=== PATIENT | male | born 1945 | race Two or more races ===

== ENCOUNTER 2025-06-14 21:59 | Inpatient (IN) | payer MEDICARE, OTHER ==
[~2025-06-14] VITALS: Ht 165.1 cm; Wt 67.6 kg
[2025-06-14 23:12] LABS: PLATELET COUNT (AUTO) 238 K/uL (150-450); RED BLOOD CELL COUNT(AUTO) 3.74 MIL/uL (4.5-6.0); RED CELL DISTRIBUTION WIDTH 13.8 % (11.5-15.0); WHITE BLOOD COUNT (AUTO) 7.2 K/uL (4.3-11.0)
[2025-06-14 23:19] LABS: CALCIUM, SERUM 8.6 mg/dL (8.5-10.1); CREATININE 1.6 mg/dL (0.6-1.3); SODIUM SERUM 139 mmol/L (136-145); UREA NITROGEN, BLOOD 48 mg/dL (7-18)
[2025-06-14 23:36] LABS: ALCOHOL, BLOOD < 3 mg/dL (0-10); ASPARTATE AMINOTRANSFERASE 29 U/L (15-37); TOTAL PROTEIN, SERUM 7.5 g/dL (6.4-8.2)
[2025-06-15 00:14] LABS: APPEARANCE,URINE SLIGHTLY CLOUDY (CLEAR); BLOOD, URINE NEGATIVE Ery/uL (NEGATIVE); LEUKOCYTE ESTERASE ,URINE 2+ (NEGATIVE); NITRITE, URINE POSITIVE (NEGATIVE); UGLUCOSE NEGATIVE (NEGATIVE)
[2025-06-15 00:21] LABS: ADD URINE CULTURE YES; SQUAMOUS EPITHELIAL CELL,UR Few /HPF (None Seen)
[2025-06-15 00:30] LABS: AMPHETAMINE, URINE NEGATIVE (NEGATIVE); BARBITURATE, URINE NEGATIVE (NEGATIVE); BENZODIAZEPINE, URINE NEGATIVE (NEGATIVE); CANNABINOID, URINE NEGATIVE (NEGATIVE); COCCAINE, URINE NEGATIVE (NEGATIVE)
[2025-06-15 00:31] LABS: OPIATE, URINE POSITIVE (NEGATIVE)
[2025-06-15] MEDS ORDERED: CIPROFLOXACIN HCL 500 MG TABLET ONE (01:20)
[2025-06-15] MEDS ORDERED: Z GUARD REMEDY 4 OZ OINT TP PRN (01:30)
[2025-06-15] MEDS ORDERED: ONDANSETRON HCL/PF 4 MG/2 ML VIAL IVP PRN (01:30)
[2025-06-15] MEDS ORDERED: MAG HYDROX/AL HYDROX/SIMETH 30 ML UDC PO PRN (01:30)
[2025-06-15] MEDS ORDERED: MAGNESIUM HYDROXIDE 30 ML UDC PO PRN (01:30)
[2025-06-15] MEDS: CIPROFLOXACIN HCL 500 MG TABLET PO ONE (01:34)
[2025-06-15] MEDS: IV NS 0.9% 1,000 ML BAG IV ONE (01:34)
[2025-06-15] MEDS ORDERED: MORPHINE SULFATE INJ 2 MG/ML DISP.SYRIN IV PRN (02:00)
[2025-06-15 02:23] VITALS: BP 151/67; TEMP 97.9; O2SAT 96
[2025-06-15] MEDS: GABAPENTIN 300 MG CAPSULE PO SCH ×2 (02:51→21:02)
[2025-06-15] MEDS: IV NS 0.9% 1,000 ML IV PRN (06:55)
[2025-06-15] MEDS: QUETIAPINE FUMARATE 25 MG TABLET PO SCH ×2 (06:55→11:39)
[2025-06-15] MEDS: ACETAMINOPHEN 325 MG TABLET PO PRN (07:08)
[2025-06-15] MEDS: DOCUSATE SODIUM 100 MG CAPSULE PO SCH (08:07)
[2025-06-15] MEDS: FINASTERIDE (5 MG) 5 MG TABLET PO SCH ×2 (08:07→09:00)
[2025-06-15] MEDS: DIVALPROEX SODIUM 125 MG TABLET.DR PO SCH ×2 (08:07→09:00)
[2025-06-15] MEDS: CHOLECALCIFEROL 1,000 UNIT TABLET (VIT D3) PO SCH (08:07)
[2025-06-15] MEDS: PANTOPRAZOLE 40 MG TABLET.DR PO SCH (08:07)
[2025-06-15] MEDS: MULTIVITAMINS,THERAGRAN 1 UDTAB TABLET PO SCH (08:08)
[2025-06-15] MEDS: FERROUS SULFATE (325 MG) 325 MG/TAB TABLET PO SCH ×2 (08:08→09:00)
[2025-06-15] MEDS: ASCORBIC ACID 500 MG TABLET PO SCH (08:08)
[2025-06-15] MEDS: AMLODIPINE BESYLATE 10 MG TABLET PO SCH ×2 (08:13→09:00)
[2025-06-15] MEDS: ENOXAPARIN SODIUM 40 MG/0.4 ML DISP.SYRIN SQ SCH (08:14)
[2025-06-15] MEDS ORDERED: ACET-868 PO (08:41)
[2025-06-15] MEDS ORDERED: BENA20TA9 PO (08:41)
[2025-06-15] MEDS ORDERED: DIVA125T32 PO (08:41)
[2025-06-15] MEDS ORDERED: FINA5TAB4 PO (08:41)
[2025-06-15] MEDS ORDERED: FERR-68 PO (08:41)
[2025-06-15] MEDS ORDERED: MELA5TAB PO (08:41)
[2025-06-15] MEDS ORDERED: AMLO10TA4 PO (08:41)
[2025-06-15] MEDS ORDERED: HYDR-3980 PO (08:41)
[2025-06-15] MEDS ORDERED: ASCO-352 PO (08:41)
[2025-06-15] MEDS ORDERED: GABA300C PO (08:41)
[2025-06-15] MEDS ORDERED: NALO4SPR NS (08:41)
[2025-06-15] MEDS ORDERED: CHOL100062 PO (08:41)
[2025-06-15] MEDS ORDERED: MULT-213 PO (08:41)
[2025-06-15] MEDS ORDERED: SORB30SO2 PO (08:41)
[2025-06-15] MEDS ORDERED: DOCU100T2 PO (08:41)
[2025-06-15] MEDS ORDERED: TAMS-12 PO (08:41)
[2025-06-15] MEDS ORDERED: SORBITOL SOLUTION 70% 30 ML SOLUTION PO PRN (09:00)
[2025-06-15] MEDS: POLYETHYLENE GLYCOL 3350 17 GM POWD.PACK PO SCH (09:00)
[2025-06-15] MEDS: DOCUSATE SODIUM LIQ 100 MG/10 ML UDC PO SCH (09:00)
[2025-06-15] MEDS: BENAZEPRIL HCL 20 MG TABLET PO SCH (09:00)
[2025-06-15] MEDS ORDERED: BENAZEPRIL HCL 20 MG TABLET PO SCH (09:00)
[2025-06-15 09:39] VITALS: BP 149/69; TEMP 98.2; O2SAT 97
[2025-06-15 11:30] VITALS: BP 132/86; TEMP 98.1; O2SAT 97
[2025-06-15] MEDS: CEFTRIAXONE 1 G in IV D5W 50 ML IV SCH (11:40)
[2025-06-15 16:00] VITALS: BP 146/72; TEMP 98.2; O2SAT 96
[2025-06-15 20:00] VITALS: BP 136/71; TEMP 98.1; O2SAT 94
[2025-06-15] MEDS ORDERED: CIPROFLOXACIN HCL 250 MG TABLET PO SCH (21:00)
[2025-06-15] MEDS: TRAZODONE 50 MG TABLET PO SCH (21:02)
[2025-06-15] MEDS: TAMSULOSIN 0.4 MG CAP.SR.24H PO SCH (21:02)
[2025-06-15] MEDS ORDERED: TAMSULOSIN 0.4 MG CAP.SR.24H PO SCH (22:00)
[2025-06-16 08:00] VITALS: BP 157/80; TEMP 97.5; O2SAT 98
[2025-06-16] MEDS: CIPROFLOXACIN HCL 250 MG TABLET PO SCH (09:00)
[2025-06-16 16:00] VITALS: BP 126/65; TEMP 97.2; O2SAT 96
[2025-06-16] MEDS: HYDROCODONE/APAP 10/325MG TABLET PO PRN (16:01)
[2025-06-16 20:00] VITALS: BP_SYST 112; BP_SYST 117; BP_DIAS 67; BP_DIAS 87; TEMP 97.2; TEMP 97.7; O2SAT 97
[2025-06-17 08:00] VITALS: BP 130/61; TEMP 97.3; O2SAT 97
[2025-06-17 15:52] VITALS: BP 103/64; TEMP 97.5; O2SAT 96
[2025-06-17 16:00] VITALS: BP 103/64; TEMP 97.5; O2SAT 96
[2025-06-17] MEDS: oxyCODONE/APAP (5/325 MG) 1 UDTAB TABLET PO PRN (16:10)
[2025-06-17 20:00] VITALS: BP 118/86; TEMP 98.4; O2SAT 95
[2025-06-18 08:00] VITALS: BP 129/66; TEMP 98.1; O2SAT 95
[2025-06-18 08:38] VITALS: BP 129/66
[2025-06-18] MEDS ORDERED: NITR100C6 PO (09:40)
[2025-06-23] MEDS ORDERED: NITR100C6 PO (15:38)
== END 2025-06-18 15:33 | DRG 689 ==
LOC: ER 22:02 → GPS 06-15 01:16 → UNDOADMIN 06-15 01:16 → MED 06-15 01:16 → TELE 06-15 02:21 → GPS 06-15 02:21 → TELE 06-15 02:36 → MED 06-15 05:02 → GPS 06-18 15:28 → UNDODISIN 06-18 15:33
PROVIDERS: ADMIT Internal Medicine; ATTEND Internal Medicine
DX: N39.0 Urinary tract infection, site not specified (principal); G93.41 Metabolic encephalopathy; N18.9 Chronic kidney disease, unspecified; N17.9 Acute kidney failure, unspecified; Z91.148 Patient's other noncompliance with medication regimen for other reason; E78.5 Hyperlipidemia, unspecified; F31.9 Bipolar disorder, unspecified; D50.9 Iron deficiency anemia, unspecified; B96.20 Unspecified Escherichia coli [E. coli] as the cause of diseases classified elsewhere; N40.1 Benign prostatic hyperplasia with lower urinary tract symptoms; N25.0 Renal osteodystrophy; Z73.6 Limitation of activities due to disability; I12.9 Hypertensive chronic kidney disease with stage 1 through stage 4 chronic kidney disease, or unspecified chronic kidney disease; F29 Unspecified psychosis not due to a substance or known physiological condition
CPT/HCPCS: 36415; 76770-TC; 80048-TC; 80076-TC; 81001; 85025-TC; 87081-TC; 87086-TC; 87186-TC; A4223; G0378; G0480; J0696; J1650; J2405; J7030; J7060

== ENCOUNTER 2025-06-18 16:33 | Inpatient (IN) | payer MEDICARE ==
[~2025-06-18] VITALS: Ht 177.8 cm; Wt 63.0 kg
[2025-06-18 16:00] VITALS: BP 122/65; TEMP 98.2; O2SAT 98
[~2025-06-18 16:33] MED LIST: ACET-868 PO; AMLO10TA4 PO; ASCO-352 PO; BENA20TA9 PO; CHOL100062 PO; DIVA125T32 PO; DOCU100T2 PO; FERR-68 PO; FINA5TAB4 PO; GABA300C PO; HYDR-3980 PO; MELA5TAB PO; MULT-213 PO; NALO4SPR NS; NITR100C6 PO; SORB30SO2 PO; TAMS-12 PO
[2025-06-18] MEDS ORDERED: TEMAZEPAM 7.5 MG CAPSULE PO PRN (17:30)
[2025-06-18] MEDS ORDERED: MAGNESIUM HYDROXIDE 30 ML UDC PO PRN (17:30)
[2025-06-18] MEDS ORDERED: LORAZEPAM 0.5 MG TABLET PO PRN (17:30)
[2025-06-18] MEDS ORDERED: ACETAMINOPHEN 325 MG TABLET PO PRN (17:30)
[2025-06-18] MEDS ORDERED: MAG HYDROX/AL HYDROX/SIMETH 30 ML UDC PO PRN (17:30)
[2025-06-18 17:34] VITALS: BP 122/65; TEMP 98.2; O2SAT 98
[2025-06-18] MEDS: BLOOD SUGAR DIAGNOSTIC 1 EACH STRIP IN ONE (18:15)
[2025-06-18 20:35] VITALS: BP 125/68; TEMP 98.4; O2SAT 97
[2025-06-18 21:04] VITALS: BP 125/68; TEMP 98.4; O2SAT 97
[2025-06-18] MEDS: TAMSULOSIN 0.4 MG CAP.SR.24H PO SCH (22:07)
[2025-06-18] MEDS: GABAPENTIN 300 MG CAPSULE PO SCH (22:07)
[2025-06-19] MEDS ORDERED: LORAZEPAM 0.5 MG TABLET PO PRN (02:30)
[2025-06-19] MEDS ORDERED: TEMAZEPAM 7.5 MG CAPSULE PO PRN ×2 (02:30)
[2025-06-19] MEDS: LORAZEPAM 0.5 MG TABLET PO PRN (02:34)
[2025-06-19 08:00] VITALS: BP 95/69; TEMP 98.2; O2SAT 97
[2025-06-19] MEDS: BENAZEPRIL HCL 20 MG TABLET PO SCH (09:00)
[2025-06-19] MEDS: AMLODIPINE BESYLATE 10 MG TABLET PO SCH (09:00)
[2025-06-19] MEDS: ASCORBIC ACID 500 MG TABLET PO SCH (09:30)
[2025-06-19] MEDS: NITROFURANTOIN/MONOHYDRATE MACROCRYSTALS 100 MG CAPSULE PO SCH (09:30)
[2025-06-19] MEDS: DOCUSATE SODIUM 100 MG CAPSULE PO SCH (09:31)
[2025-06-19] MEDS: FERROUS SULFATE (325 MG) 325 MG/TAB TABLET PO SCH (09:31)
[2025-06-19] MEDS: MULTIVIT W/MINERALS 1 TAB TABLET PO SCH (09:31)
[2025-06-19] MEDS: FINASTERIDE (5 MG) 5 MG TABLET PO SCH (09:31)
[2025-06-19 16:00] VITALS: BP 106/76; TEMP 98.7; O2SAT 100
[2025-06-19] MEDS ORDERED: QUETIAPINE FUMARATE 25 MG TABLET PO SCH (17:00)
[2025-06-19] MEDS: DIVALPROEX SODIUM 125 MG CAP.SPRINK PO SCH (17:39)
[2025-06-19 20:49] VITALS: BP 124/53; TEMP 98.2; O2SAT 98
[2025-06-19] MEDS ORDERED: TRAZODONE 50 MG TABLET PO SCH (22:00)
[2025-06-20 08:00] VITALS: BP 140/78; TEMP 97.7; O2SAT 98
[2025-06-20 16:00] VITALS: BP 122/72; TEMP 97.7; O2SAT 97
[2025-06-20 20:05] VITALS: BP 128/69; TEMP 97.9; O2SAT 100
[2025-06-21 07:45] LABS: PLATELET COUNT (AUTO) 252 K/uL (150-450); RED BLOOD CELL COUNT(AUTO) 3.85 MIL/uL (4.5-6.0); RED CELL DISTRIBUTION WIDTH 13.5 % (11.5-15.0); WHITE BLOOD COUNT (AUTO) 13.5 K/uL (4.3-11.0)
[2025-06-21 07:50] LABS: CALCIUM, SERUM 8.8 mg/dL (8.5-10.1); CREATININE 1.4 mg/dL (0.6-1.3); SODIUM SERUM 148.0 mmol/L (136-145); UREA NITROGEN, BLOOD 63.0 mg/dL (7-18)
[2025-06-21 08:00] VITALS: BP 139/67; TEMP 98.8; O2SAT 97
[2025-06-21 08:57] LABS: OCCULT BLOOD STOOL NEGATIVE (NEGATIVE)
[2025-06-21 09:20] VITALS: BP 139/67
[2025-06-21] MEDS: Z GUARD REMEDY 4 OZ OINT TP PRN (09:21)
[2025-06-21] MEDS: QUETIAPINE FUMARATE 25 MG TABLET PO SCH (09:47)
[2025-06-21] MEDS: ONDANSETRON 4 MG TAB.RAPDIS SL PRN (12:28)
[2025-06-21] MEDS ORDERED: LORA-258 PO (15:15)
[2025-06-21] MEDS ORDERED: TEMA7.5C12 PO (15:15)
[2025-06-21] MEDS ORDERED: ALLA266C2 TP (15:15)
[2025-06-21] MEDS ORDERED: ONDA-97 SL (15:15)
[2025-06-21] MEDS ORDERED: MAGN400O6 PO (15:15)
[2025-06-21] MEDS ORDERED: QUET25TA PO (15:15)
[2025-06-21] MEDS ORDERED: DIVA125C5 PO (15:15)
[2025-06-21] MEDS ORDERED: TRAZ-257 PO (15:15)
[2025-06-21] MEDS ORDERED: MAG30ORA PO (15:15)
[2025-06-23] MEDS ORDERED: NITR100C6 PO (15:38)
== END 2025-06-21 12:51 | DRG 885 ==
LOC: GPS 16:33
PROVIDERS: ADMIT Registered Nurse; ATTEND Internal Medicine
DX: F31.9 Bipolar disorder, unspecified (principal); N18.9 Chronic kidney disease, unspecified; R45.1 Restlessness and agitation; N17.9 Acute kidney failure, unspecified; G93.41 Metabolic encephalopathy; N39.0 Urinary tract infection, site not specified; F39 Unspecified mood [affective] disorder; Z79.899 Other long term (current) drug therapy; B96.89 Other specified bacterial agents as the cause of diseases classified elsewhere; E78.5 Hyperlipidemia, unspecified; D50.9 Iron deficiency anemia, unspecified; G62.9 Polyneuropathy, unspecified; Z91.199 Patient's noncompliance with other medical treatment and regimen due to unspecified reason; N40.0 Benign prostatic hyperplasia without lower urinary tract symptoms; F41.9 Anxiety disorder, unspecified; I12.9 Hypertensive chronic kidney disease with stage 1 through stage 4 chronic kidney disease, or unspecified chronic kidney disease; N25.0 Renal osteodystrophy
CPT/HCPCS: 36415; 80048-TC; 82272-TC; 85025-TC; 97110-TC; 97112-TC; 97530-TC; Q0162

== ENCOUNTER 2025-06-21 13:18 | Inpatient (IN) | payer MEDICARE ==
[~2025-06-21] VITALS: Ht 167.6 cm; Wt 59.0 kg
[~2025-06-21 13:18] MED LIST changes: -DIVA125T32 PO; -MELA5TAB PO
[2025-06-21 14:00] VITALS: BP 109/62; TEMP 97.9; O2SAT 95
[2025-06-21] MEDS ORDERED: MAGNESIUM HYDROXIDE 30 ML UDC PO PRN ×2 (15:00→18:30)
[2025-06-21] MEDS ORDERED: NALOXONE HCL 4 MG SPRAY NS PRN (15:00)
[2025-06-21] MEDS ORDERED: ONDANSETRON HCL/PF 4 MG/2 ML VIAL IVP PRN (15:00)
[2025-06-21] MEDS ORDERED: SORBITOL SOLUTION 70% 30 ML SOLUTION PO PRN (15:00)
[2025-06-21] MEDS ORDERED: Z GUARD REMEDY 4 OZ OINT TP PRN (15:00)
[2025-06-21] MEDS ORDERED: MAG HYDROX/AL HYDROX/SIMETH 30 ML UDC PO PRN ×2 (15:00→18:30)
[2025-06-21] MEDS ORDERED: ACETAMINOPHEN 325 MG TABLET PO PRN (15:00)
[2025-06-21] MEDS ORDERED: ZOLPIDEM TARTRATE 5 MG TABLET PO PRN (15:00)
[2025-06-21] MEDS ORDERED: LORA-258 PO (15:15)
[2025-06-21] MEDS ORDERED: DIVA125C5 PO (15:15)
[2025-06-21] MEDS ORDERED: TEMA7.5C12 PO (15:15)
[2025-06-21] MEDS ORDERED: ONDA-97 SL (15:15)
[2025-06-21] MEDS ORDERED: MAGN400O6 PO (15:15)
[2025-06-21] MEDS ORDERED: TRAZ-257 PO (15:15)
[2025-06-21] MEDS ORDERED: ALLA266C2 TP (15:15)
[2025-06-21] MEDS ORDERED: QUET25TA PO (15:15)
[2025-06-21] MEDS ORDERED: MAG30ORA PO (15:15)
[2025-06-21 16:00] VITALS: BP 129/77; TEMP 97.2; O2SAT 96
[2025-06-21] MEDS: NITROFURANTOIN/MONOHYDRATE MACROCRYSTALS 100 MG CAPSULE PO SCH (17:00)
[2025-06-21] MEDS: HYDROCODONE/APAP 10/325MG TABLET PO SCH (17:40)
[2025-06-21] MEDS: IV D5/0.45 NACL 1,000 ML IV PRN (17:47)
[2025-06-21] MEDS ORDERED: LORAZEPAM 0.5 MG TABLET PO PRN (18:30)
[2025-06-21] MEDS ORDERED: ONDANSETRON 4 MG TAB.RAPDIS PO PRN (18:30)
[2025-06-21] MEDS: TAMSULOSIN 0.4 MG CAP.SR.24H PO SCH (21:18)
[2025-06-21] MEDS: GABAPENTIN 300 MG CAPSULE PO SCH (21:18)
[2025-06-21] MEDS: TRAZODONE 50 MG TABLET PO SCH (21:18)
[2025-06-22 04:19] VITALS: BP 128/77; TEMP 98; O2SAT 92
[2025-06-22 08:00] VITALS: BP 89/53; TEMP 97.5; O2SAT 93
[2025-06-22] MEDS ORDERED: Z GUARD REMEDY 4 OZ OINT TP PRN (08:30)
[2025-06-22] MEDS: DIVALPROEX SODIUM 125 MG CAP.SPRINK PO SCH (08:48)
[2025-06-22] MEDS: FERROUS SULFATE (325 MG) 325 MG/TAB TABLET PO SCH (08:48)
[2025-06-22] MEDS: MULTIVIT W/MINERALS 1 TAB TABLET PO SCH (08:49)
[2025-06-22] MEDS: DOCUSATE SODIUM 100 MG CAPSULE PO SCH (08:49)
[2025-06-22] MEDS: FINASTERIDE (5 MG) 5 MG TABLET PO SCH (08:49)
[2025-06-22] MEDS: CHOLECALCIFEROL 1,000 UNIT TABLET (VIT D3) PO SCH (08:49)
[2025-06-22] MEDS: ASCORBIC ACID 500 MG TABLET PO SCH (08:49)
[2025-06-22] MEDS: QUETIAPINE FUMARATE 25 MG TABLET PO SCH (08:50)
[2025-06-22] MEDS: AMLODIPINE BESYLATE 10 MG TABLET PO SCH (09:00)
[2025-06-22] MEDS: BENAZEPRIL HCL 20 MG TABLET PO SCH (09:00)
[2025-06-22] MEDS: IV NS 0.9% 500 ML IV ONE (09:27)
[2025-06-22 16:00] VITALS: BP 104/72; TEMP 98.6; O2SAT 92
[2025-06-22 20:00] VITALS: BP 97/73; TEMP 98.1; O2SAT 92
[2025-06-22 20:36] VITALS: BP 97/73; TEMP 98.1; O2SAT 92
[2025-06-23 07:30] VITALS: BP 107/69; TEMP 98.1; O2SAT 95
[2025-06-23] MEDS ORDERED: DIATR MEGLU/DIATRIZOATE SODIUM 30 ML BOTTLE (GASTROGRAPHIN) ONE (10:07)
[2025-06-23] MEDS ORDERED: NITR100C6 PO (15:38)
[2025-06-23 15:58] VITALS: BP 115/82; TEMP 98.8; O2SAT 93
[2025-06-23] MEDS: ACETAMINOPHEN 325 MG TABLET PO PRN (19:37)
[2025-06-23 20:00] VITALS: BP 135/83; TEMP 100; O2SAT 95
[2025-06-23] MEDS: TEMAZEPAM 7.5 MG CAPSULE PO PRN (21:06)
[2025-06-24 02:00] VITALS: TEMP 99.3; O2SAT 97
[2025-06-24 08:00] VITALS: BP 98/54; TEMP 97.6; O2SAT 93
[2025-06-24 16:16] VITALS: BP 135/67; TEMP 97.2; O2SAT 58
== END 2025-06-24 16:28 | DRG 393 ==
LOC: MED 13:18
PROVIDERS: ADMIT Student in an Organized Health Care Education/Training Program; ATTEND Student in an Organized Health Care Education/Training Program
DX: K40.90 Unilateral inguinal hernia, without obstruction or gangrene, not specified as recurrent (principal); G93.41 Metabolic encephalopathy; N17.0 Acute kidney failure with tubular necrosis; N39.0 Urinary tract infection, site not specified; E87.0 Hyperosmolality and hypernatremia; F23 Brief psychotic disorder; R11.2 Nausea with vomiting, unspecified; B96.20 Unspecified Escherichia coli [E. coli] as the cause of diseases classified elsewhere; D64.9 Anemia, unspecified; E78.5 Hyperlipidemia, unspecified; E86.0 Dehydration; F31.9 Bipolar disorder, unspecified; D72.829 Elevated white blood cell count, unspecified; D50.9 Iron deficiency anemia, unspecified; F29 Unspecified psychosis not due to a substance or known physiological condition; L89.156 Pressure-induced deep tissue damage of sacral region; L89.316 Pressure-induced deep tissue damage of right buttock; N40.1 Benign prostatic hyperplasia with lower urinary tract symptoms; I12.9 Hypertensive chronic kidney disease with stage 1 through stage 4 chronic kidney disease, or unspecified chronic kidney disease; N18.9 Chronic kidney disease, unspecified
CPT/HCPCS: 71045-TC; 74018; A4223; G0378; J3490; Q9963